=== PATIENT | male | born 1970 | race Caucasian/White ===

== ENCOUNTER 2023-01-04 14:04 | Emergency (ER) | payer MEDICAID ==
[~2023-01-04] VITALS: Ht 167.6 cm; Wt 70.3 kg
[2023-01-04 14:31] VITALS: BP 142/66
--- NOTE | 2023-01-04 15:28 | NUR ---
Patient discharged to home in stable condition. Written and verbal after care instructions given. Patient verbalizes understanding of instruction.
== END 2023-01-04 15:30 | disposition home or self-care (01) ==
LOC: ER 14:08
DX: Z48.02 Encounter for removal of sutures (principal); Z60.2 Problems related to living alone